=== PATIENT | female | born 1990 | race Caucasian/White ===

== ENCOUNTER 2020-03-23 06:00 | Inpatient (IN) | payer OTHER ==
[2020-03-23] MEDS ORDERED: OXYTOCIN 10 UNIT/ML 1 ML VIAL IM PRN (06:28)
[2020-03-23] MEDS ORDERED: LIDOCAINE 0.5% (PF) 5 MG/ML (50 ML SDV) SQ PRN (06:28)
[2020-03-23] MEDS ORDERED: CARBOPROST TROMETHAMINE 250 MCG/ML 1 ML AMP IM PRN (06:28)
[2020-03-23] MEDS ORDERED: METHYLERGONOVINE 0.2 MG/ML 1 ML AMP IM PRN (06:28)
[2020-03-23] MEDS ORDERED: TERBUTALINE 1 MG/ML VIAL SQ PRN (06:28)
[2020-03-23] MEDS ORDERED: LACTATED RINGERS 1,000 ML IV SCH (06:30)
[2020-03-23] MEDS ORDERED: OXYTOCIN 30 UNITS/500 ML NS 30 UNIT in SALINE 1 500ML.BAG IV SCH (06:30)
[2020-03-23] MEDS ORDERED: PENICILLIN G POTASSIUM 5,000,000 UNIT in DEXTROSE 5% IN WATER 100 ML IVPB ONE ×2 (07:00)
--- NOTE | 2020-03-23 07:50 | P.HPOB ---
History of Present Illness H&P Date: 03/23/20 This is a 29-year-old white female 6 para 3023 EDC 03/23/2040 weeks gestation. Patient presents today for induction with favorable multiparous cervix. Fetus is been active throughout the . She denies vaginal bleeding or fluid leakage. She has rare irregular spontaneous contractions. Past medical history significant for morbid obesity, arthritis, history of HSV, and large umbilical hernia. Past surgical history wisdom teeth extracted, tonsillectomy, cervical lymph node removal of benign pathology. Current medications vitamins daily, Valtrex 1000 mg daily, prophylactically. ALLERGIES none known. Family history significant for diabetes, hypertension, and unspecified cancer. Obstetric history is significant for normal spontaneous vaginal deliveries 3, unremarkable. Social history patient is , she has never been a smoker, she denies alcohol or drug use. history blood type is A+, rubella status immune. Hepatitis B surface antigen, HIV testing, gonorrhea and chlamydia cultures, urine drug screen, TSH, all within normal limits. Group B strep cultures positive. One-hour Glucola 133. On exam patient is 5 foot 7 inches, 469 pounds, blood pressure 143/84 on admission. The general physical exam is within normal limits. The cervix is 5 cm dilated, 70% effaced, -2 station, vertex presentation. Artificial amniorrhexis reveals clear fluid. Internal scalp lead is applied. heart rate is consistent with reactive NST. No HSV prodrome or lesions noted. Impression: 40 week intrauterine , here for induction of labor with favorable cervix. Morbid obesity noted. Positive group B strep status. Plan: Analgesic options have been reviewed. Oxytocin per hospital protocol. First dose of penicillin G has been given. Continue close maternal and surveillance. Anticipate normal spontaneous vaginal delivery. Review of Systems Constitutional: Reports as per HPI Past Medical History Past Medical History: Skin Disorder Additional Past Medical History / Comment(s): eczema, arthritis, morbid obesity History of Any Multi-Drug Resistant Organisms: None Reported Past Surgical History: Adenoidectomy, Tonsillectomy Additional Past Surgical History / Comment(s): lymph node removal left side of neck, all wisdom teeth removed Past Anesthesia/Blood Transfusion Reactions: No Reported Reaction Past Psychological History: No Psychological Hx Reported Smoking Status: Former smoker Past Drug Use History: None Reported - Past Family History Mother Family Medical History: Hypertension Medications and Allergies Home Medications Medication Instructions Recorded Confirmed Type Iron 18 mg PO BID 03/23/20 03/23/20 History Pnv No.95/Ferrous Fum/Folic AC 1 each PO DAILY 03/23/20 03/23/20 History [ Multivitamin Tablet] valACYclovir HCL [Valtrex] 1,000 mg PO DAILY 03/23/20 03/23/20 History Allergies Allergy/AdvReac Type Severity Reaction Status Date / Time No Known Allergies Allergy Verified 03/23/20 06:23 Exam Vital Signs Temp Pulse Resp BP Pulse Ox 03/23/20 06:35 96.6 F L 114 H 18 143/84 98 Intake and Output 03/22/20 03/23/20 03/23/20 22:59 06:59 14:59 Other: Weight 212.735 kg See dictation under HPI Assessment and Plan Assessment: 40 week intrauterine , positive group B strep status with first dose of penicillin given, morbid obesity, history of HSV, no prodrome or lesions currently. Plan: Continue close maternal and surveillance. Oxytocin per hospital protocol. Penicillin G per hospital protocol. Anticipate normal spontaneous vaginal delivery. Time with Patient: Less than 30
[2020-03-23 08:07] LABS: Anisocytosis Slight; Basophils % (A) 0 %; Eosinophils # (A) 0.1 k/uL (0-0.7); Eosinophils % (A) 1 %; HCT 36.1 % (34.0-46.0); HGB 11.7 gm/dL (11.4-16.0); Hypochromasia Slight; Lymphocytes # (A) 1.8 k/uL (1.0-4.8); Lymphocytes % (A) 19 %; MCH 27.2 pg (25.0-35.0); MCHC 32.3 g/dL (31.0-37.0); MCV 84.2 fL (80.0-100.0); Mean Platelet Volume 9.3; Microcytosis Slight; Monocytes # (A) 0.4 k/uL (0-1.0); Monocytes % (A) 4 %; Neutrophils % (A) 75 %; Platelet Count 206 k/uL (150-450); RBC 4.29 m/uL (3.80-5.40); RDW 19.6 % (11.5-15.5); WBC 9.4 k/uL (3.8-10.6)
[2020-03-23] MEDS ORDERED: BUTORPHANOL 1 MG/ML 1 ML VIAL IV PRN (08:19)
[2020-03-23] MEDS ORDERED: PENICILLIN G POTASSIUM 2,500,000 UNIT in DEXTROSE 5% IN WATER 100 ML IVPB SCH ×2 (11:00)
[2020-03-23] MEDS ORDERED: SODIUM CHLORIDE 0.9% 100 ML BAG ONE (11:01)
[2020-03-23] MEDS ORDERED: ROPIVACAINE 5MG/ML 20ML VIAL ONE (11:01)
[2020-03-23] MEDS ORDERED: fentaNYL (PF) 50 MCG/ML 5 ML AMP ONE (11:01)
[2020-03-23] MEDS ORDERED: IBUPROFEN 600 MG TAB PO PRN (11:44)
[2020-03-23] MEDS ORDERED: diphenhydrAMINE 50 MG/ML 1 ML VIAL IVP PRN ×2 (11:44)
[2020-03-23] MEDS ORDERED: ACETAMINOPHEN TAB 325 MG TAB PO PRN (11:44)
[2020-03-23] MEDS ORDERED: diphenhydrAMINE 50 MG CAP PO PRN (11:44)
[2020-03-23] MEDS ORDERED: diphenhydrAMINE 25 MG CAP PO PRN (11:44)
[2020-03-23] MEDS ORDERED: BENZOCAINE/MENTHOL SPRAY 1 GM/SPRAY AEROSOL TOPICAL PRN (11:44)
[2020-03-23] MEDS ORDERED: ZOLPIDEM 5 MG TAB PO PRN (11:44)
[2020-03-23] MEDS ORDERED: WITCH HAZEL 1 EACH MED..PAD TOPICAL PRN (11:44)
[2020-03-23] MEDS ORDERED: diphenhydrAMINE ELIXIR 25 MG/10 ML CUP PO PRN (11:44)
[2020-03-23] MEDS ORDERED: HYDROCORTISONE 2.5% RECTAL CREAM 30 GM TUBE RECTAL PRN (11:44)
[2020-03-23] MEDS ORDERED: SIMETHICONE 80 MG CHEWABLE PO PRN (11:44)
[2020-03-23] MEDS ORDERED: LANOLIN CREAM 5 GM TUBE TOPICAL PRN (11:44)
--- NOTE | 2020-03-23 11:44 | P.PROBDLV ---
Vaginal Delivery Note - . Vaginal Delivery Note: This is a 29-year-old female 6 para 3023 EDC 03/23/2020 at 40 weeks gestation. Patient presented today for induction with favorable multiparous cervix. was remarkable for positive group B strep cultures, rubella status immune, blood type A positive. Please see admitting H&P for details. Of note is maternal weight, 469 pounds. Artificial amniorrhexis revealed clear fluid. Penicillin G was started, 2 units had been given every 4 hours apart as per protocol. Epidural was requested and placed. Patient rapidly then became completely dilated and had a strong urge to push. With maternal expulsive efforts the head quickly delivered occiput anterior and restituted accordingly. There was a nuchal cord 1 that was reduced. The shoulders delivered quickly and the patient was officially delivered of a liveborn female at 1128 hours. Umbilical cord was doubly clamped and ligated, she was handed to waiting nurses for evaluation where scores of 9 and 9 at one and 5 minutes respectively were given. Infant weighed 3875 g or 8 lbs. 9 oz. Placenta delivered spontaneously, it was inspected and noted to be intact with trivascular cord at 1134 hours. This time the perineal body was redraped. Careful inspection of the cervix, va allan, perineum, periurethral, and perirectal areas revealed no lacerations or defects. Fundus is firm and in the midline, symmetric and 18 week size upon completion of delivery. Total estimated blood loss 200 mL's. Patient and her family are allowed to begin the bonding experience in the LDR.
[2020-03-23] MEDS ORDERED: OXYTOCIN 20 UNITS/1000 ML NS 1,000 ML IV SCH (11:45)
[2020-03-23] MEDS ORDERED: SENNOSIDES-DOCUSATE SODIUM 1 EACH TAB PO SCH (20:00)
[2020-03-24 04:17] VITALS: RESP 18
--- NOTE | 2020-03-24 07:48 | P.DS ---
Providers Date of admission: 03/23/20 06:09 Expected date of discharge: 03/24/20 Attending physician: Greta Sheikh Primary care physician: Stated None Hospital Course: This is a 29-year-old white female 6 para 3023 EDC 03/23/2020 who presented at 40 weeks gestation for induction with favorable multiparous cervix. Group B strep cultures were positive, rubella status immune, blood type A positive. Her history is significant for morbid obesity, weight on admission 469 pounds. Please see dictated history and physical for details. Artificial amniorrhexis revealed clear fluid. Oxytocin was started and titrated. Epidural was placed per her request. She went on to deliver a liveborn female with scores of 9 and 9 at one and 5 minutes respectively. Infant weighed 8 lbs. 9 oz. or 3875 g. Estimated blood loss 200 mL, intact perineal body. Please see dictated delivery note for details. This morning the patient is doing well. She is voiding, ambulating and passing flatus without difficulty. Vital signs are stable and she is afebrile. Fundus is firm and in the midline, symmetric and 18 week size. Extremities reveal no edema. Chest is clear in all louie. Topmost infant is doing well. Patient is judged to be in very good condition for discharge home. Patient will follow-up with me in the office in 6 weeks. I'm strongly recommending that she follow up as well with Dr. Greta Zamorano for discussion of bariatric surgery. I have spent some time with her at the bedside reviewing the multiple health issues that her weight represents. She is considering the use of a nexplanon for contraception. We will discuss this further in the office. No intercourse, tampons or douching. [id number] Advil or Aleve or Motrin as needed for pain. Call with any fevers shakes or chills, foul smelling or copious lochia, with the passage of large blood clots, or indeed with any difficulties or concerns. Assessment: Doing well day #1. Health Concerns: Morbid obesity Patient Condition at Discharge: Good Plan - Discharge Summary Discharge Rx Participant: No New Discharge Prescriptions: No Action valACYclovir HCL [Valtrex] 1,000 mg PO DAILY Pnv No.95/Ferrous Fum/Folic AC [ Multivitamin Tablet] 1 each PO DAILY Iron 18 mg PO BID Discharge Medication List Iron 18 mg PO BID 03/23/20 [History] Pnv No.95/Ferrous Fum/Folic AC [ Multivitamin Tablet] 1 each PO DAILY 03/23/20 [History] valACYclovir HCL [Valtrex] 1,000 mg PO DAILY 03/23/20 [History] Follow up Appointment(s)/Referral(s): Greta Sheikh MD [STAFF PHYSICIAN] - 6 Weeks
[2020-03-24 09:58] VITALS: BP 140/78; PULSE 94; TEMP 98.1
== END 2020-03-24 15:00 | disposition home or self-care (01) | DRG 806 ==
LOC: 4FBP 06:09
PROVIDERS: ADMIT Obstetrics & Gynecology; ATTEND Obstetrics & Gynecology
PROC: 10E0XZZ Delivery of Products of Conception, External Approach (ICD-10-PCS; principal; 2020-03-23)
PROC: 10907ZC Drainage of Amniotic Fluid, Therapeutic from Products of Conception, Via Natural or Artificial Opening (ICD-10-PCS; 2020-03-23)
PROC: 3E0R3BZ Introduction of Anesthetic Agent into Spinal Canal, Percutaneous Approach (ICD-10-PCS; 2020-03-23)
DX: O99.214 Obesity complicating childbirth (principal); O98.52 Other viral diseases complicating childbirth; Z37.0 Single live birth; E66.01 Morbid (severe) obesity due to excess calories; M19.90 Unspecified osteoarthritis, unspecified site; O99.89 Other specified diseases and conditions complicating pregnancy, childbirth and the puerperium; K42.9 Umbilical hernia without obstruction or gangrene; O99.824 Streptococcus B carrier state complicating childbirth; O69.81X0 Labor and delivery complicated by cord around neck, without compression, not applicable or unspecified; B00.9 Herpesviral infection, unspecified; Z3A.40 40 weeks gestation of pregnancy; Z98.890 Other specified postprocedural states; Z79.899 Other long term (current) drug therapy; Z87.891 Personal history of nicotine dependence; Z83.3 Family history of diabetes mellitus; Z82.49 Family history of ischemic heart disease and other diseases of the circulatory system
CPT/HCPCS: 85025; 86850; 86900; 86901

== ENCOUNTER → 2023-11-14 | Outpatient (CLI) | payer OTHER ==
--- NOTE | 2023-11-14 13:51 | MM ---
Reason for Exam: Clinical finding. Baseline mammogram. Indicated Problems: Lump or thickening of the left side for 1 Year(s). Patient History: Menarche at age 13. First Full-Term at age 25. Prior Study Comparison: Patient's first Mammogram. Tissue Density: The breast tissue is almost entirely fat. Findings: Analyzed By CAD. Palpable marker placed along the medial aspect of the left breast. No significant mass, suspicious microcalcification, or discrete abnormality is seen. Overall Assessment: Incomplete: need additional imaging evaluation, BI-RAD 0 Management: Diagnostic Breast Ultrasound of the left breast. Targeted to the palpable site. Electronically signed and approved by: Gloria Yan M.D. Radiologist
--- NOTE | 2023-11-14 14:00 | USB ---
Reason for Exam: Clinical finding. Patient History: Menarche at age 13. First Full-Term at age 25. Technique: Method: Targeted. Findings: The area of palpable concern of the left breast, the axilla of the left breast and the retroareolar of the left breast were scanned. Targeted ultrasound left breast at the palpable site 11:00 position. Additional scanning of the axilla. There is a circumscribed, oval, echogenic mass measuring 3.4 x 3.3 x 1.2 cm, compatible with a lipoma given that there is no mammographic mass identified. The patient reports that this has been present for the last couple years. No other solid or cystic lesion or axillary lymphadenopathy. Overall Assessment: Benign, BI-RAD 2 Management: Screening Mammogram of both breasts at age 42. Unless there is a clinical indication to start sooner. Patient is 3.4 cm palpable mass on the left corresponds to benign breast lipoma. Excision could be considered if it becomes symptomatic or if growth is noted. A clinical breast exam by your physician is recommended on an annual basis and results should be correlated with mammographic findings. This exam should not preclude additional follow-up of suspicious palpable abnormalities. Results were given to the patient verbally at the time of exam. Electronically signed and approved by: Gloria Yan M.D. Radiologist
== END | disposition home or self-care (01) ==
LOC: RADMAMWWP 12:48
PROVIDERS: ATTEND Obstetrics & Gynecology
DX: N63.20 Unspecified lump in the left breast, unspecified quadrant (principal)
CPT/HCPCS: 77066; 76642; G0279; 77062